=== PATIENT | male | born 1970 | race Two or more races ===

== ENCOUNTER 2025-02-11 08:12 | Emergency (ER) | payer OTHER, SELFPAY ==
[2025-02-11 08:12] VITALS: BMI 51.3
[2025-02-11 08:19] VITALS: BP 171/112; BP 196/128; PULSE 73; RESP 18; TEMP 36.5; O2SAT 96
--- NOTE | 2025-02-11 08:33 | XR_ITS ---
Examination: Knee bilateral, 6 views Technique: Knee AP, lateral, oblique each knee total 6 views Date and time of exam: February 11, 2025, 0924 hours INDICATIONS: Onset bilateral knee pain beginning 1 week ago. 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
--- NOTE | 2025-02-11 08:33 | XR_ITS ---
Examination: Venous duplex lower extremity sonogram, bilateral. Date and time of exam: February 11, 2025, 0849 hours INDICATIONS: Bilateral leg pain a few months Technique: Multiple sonographic images of the deep venous system have been obtained. B-mode/2-D grayscale imaging of vascular structures and Doppler spectral analysis (waveforms) and color performed Both legs are examined. Findings: Deep venous systems do not demonstrate abnormal echogenicity. All visualized deep veins exhibit compressibility. All visualized deep veins exhibit augmentation. Impression: Negative for deep vein thrombosis
--- NOTE | 2025-02-11 08:34 | EKG_ITS ---
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
--- NOTE | 2025-02-11 08:34 | XR_ITS ---
EXAMINATION: PA lateral chest 2 views TECHNIQUE: Upright PA lateral chest 2 views Date and time: February 11, 2025, 0925 hours INDICATIONS: Shortness of breath chest pain today. FINDINGS: Minimal prominence left ventricle No pneumonia or pulmonary edema Probably prominent left first costochondral junction but recommend lordotic chest follow-up to exclude nodule in the left upper lobe Mild thoracic spondylosis IMPRESSION: Recommend AP lordotic chest follow-up to exclude pulmonary nodule left apex
--- NOTE | 2025-02-11 08:41 | PD.EDADULT ---
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 Patient denies any recent trauma, fever, nausea, vomiting, diaphoresis, chest pain, recent travel, surgeries, immobilizations, hx of CA, smoking, drug use. Related Data Home Medications ?Medication ?Instructions ?Recorded ?Confirmed baclofen 20 mg tablet 20 mg PO BID PRN pain #0 tabs 03/25/17 09/24/20 gabapentin 100 mg capsule 100 mg PO TID #0 caps 03/25/17 09/24/20 Previous Rx's ?Medication ?Instructions ?Recorded Acetaminophen ER * (TYLENOL ER *) 650 mg PO Q8HR PRN PAIN OR FEVER > 03/25/17 101 ##30 diclofenac sodium 1 % topical gel 2 g topical QID #50 grams 02/11/25 (Voltaren Arthritis Pain) Allergies Allergy/AdvReac Type Severity Reaction Status Date / Time No Known Allergies Allergy Verified 02/11/25 08:15 ED Exam Narrative Physical exam: Constitutional: Patient alert and oriented. Well appearing. No acute distress. Not toxic appearing. Head: Normocephalic, atraumatic. Eyes: Periorbital regions bilaterally normal to inspection. Conjunctiva clear bilaterally. Sclera anicteric bilaterally. Pupils equal, round, reactive to light bilaterally. Extraocular movements intact bilaterally. Mouth/Throat: Mucous membranes moist. No stridor or muffled voice. No trismus. Handling secretions without difficulty. Airway widely patent. Neck: Supple. Trachea midline. No JVD. No nuchal rigidity. Normal range of motion. Respiratory: Normal effort. No accessory muscle use or respiratory distress. Lungs clear to auscultation bilaterally without rhonchi, wheezes, or crackles. Cardiovascular: RRR. Normal S1/S2. No murmurs or rubs. Radial pulses intact bilaterally. Abdomen: Soft. Non-distended. Non-tender throughout. No pulsatile mass. No guarding or rebound. Negative Hameed?s sign. Negative McBurney?s point tenderness. Negative Rovsing?s. Back: No midline tenderness or step-offs. No CVA tenderness to palpation bilaterally. Upper Extremities: No gross deformities. Lower Extremities: No gross deformities. No edema or calf tenderness. Positive tenderness to palpation to medial joint line with small effusion noted to knees bilaterally. No erythema, warmth, ecchymosis. Patient with painless mid range of motion from 10 to 90 degrees. Negative laxity upon anterior, posterior draw. Neuro: Speech normal. No gross motor or sensory deficits to upper or lower extremities bilaterally. GCS 15. CN II?XII grossly intact. Skin: Warm, dry, normal color. Psych: Normal affect. Cooperative. Normal insight. Course Course Course Narrative: MDM Concern for internal knee derangement B/L resulting in effusion from arthritis vs sprain versus strain versus occult fracture or dislocation No infectious etiology and low suspicion for septic arthritis given lack of circumferential erythema, heat, irritable joint as patient has a fairly good mid range motion but is painless Extremities B/L remains distally neurovascular intact with soft compartments X-ray without gross fracture or bony malalignment Pt also c/o of intermittent SOB pt O2 sat is 97 on RA and no sigsn of respiratory distress this is SOB of unclear e/o however pt does not have symptoms right now Other serious causes of shortness of breath were considered: ACS considered but unlikely given absence of chest pain and no concerning history or risk features at this time and trop x 2 negative CHF doubted given lack of edema, JVD, or signs of volume overload. and BNP negative PE considered but unlikely given low Wells score and absence of pleuritic chest pain. and d-dimer negative Pneumonia doubted given no focal findings on exam. Admission was considered, but based on history, exam, and clinical improvement after therapy, outpatient management is appropriate. The patient was counseled that if symptoms worsen?including increased shortness of breath, chest pain, or syncope?they should return immediately for reassessment. Close follow-up with PMD in 1-2 days is recommended. Quality Measures none Orders Category Date Time Status Continuous EKG monitoring NOW Care 02/11/25 08:34 Completed Continuous Pulse Oximetry NOW Care 02/11/25 08:34 Completed EKG (ED ONLY) *Do not use* NOW Care 02/11/25 08:34 Completed Insert IV NOW Care 02/11/25 09:16 Completed Miscellaneous Nursing Order NOW Care 02/11/25 14:09 Completed EKG (ED Only) Stat Exams 02/11/25 08:34 Draft US venous duplex LE BI Stat Exams 02/11/25 08:33 Completed XR chest 2V Stat Exams 02/11/25 08:34 Completed XR chest w apical lordotic Stat Exams 02/11/25 11:44 Completed XR knee BI 3V Stat Exams 02/11/25 08:33 Completed B-Type Natriuretic Peptide Stat Lab 02/11/25 09:17 Completed CBC Stat Lab 02/11/25 09:17 Completed CK [Creatine Kinase] Stat Lab 02/11/25 09:17 Completed Comprehensive Metabolic Panel Stat Lab 02/11/25 09:17 Completed D-Dimer Stat Lab 02/11/25 09:17 Completed INR [Prothrombin Time with INR] Stat Lab 02/11/25 09:17 Completed Lipase Stat Lab 02/11/25 09:17 Completed Partial Thromboplastin Time Stat Lab 02/11/25 09:17 Completed Troponin I Stat Lab 02/11/25 09:17 Completed Troponin I Stat Lab 02/11/25 12:25 Completed Urinalysis, C/S if Indicated Stat Lab 02/11/25 09:50 Completed Ketorolac Inj [Toradol Inj] Med 02/11/25 11:46 Discontinued 60 mg IM X1 ONE Morphine* Inj Med 02/11/25 09:16 Discontinued 4 mg IM X1 ONE Ondansetron Inj [Zofran Inj] Med 02/11/25 09:16 Discontinued 4 mg IVP X1 ONE Reevaluation(s) Reevaluation #1: At the time of reassessment, the patient remains alert and oriented ?3 with GCS 15. Vitals are normal, pain is controlled, and the patient is tolerating oral intake without nausea or vomiting. The patient is agreeable to discharge and verbalizes understanding of the diagnosis, studies, treatment plan, medications (including side effects/precautions), and strict ER return precautions as discussed in the ED. All concerns were addressed, and the patient is comfortable with the plan. Time: 14:01 Vital Signs Vital signs: Vital Signs Temperature 97.7 F 02/11/25 08:19 Pulse Rate 73 02/11/25 08:19 Respiratory Rate 18 02/11/25 08:19 Blood Pressure 196/128 H 02/11/25 08:19 Pulse Oximetry (%) 96 02/11/25 08:19 Oxygen Delivery Method Room Air 02/11/25 08:19 PROCEDURES: EKG Interpretation #1: Date of EK02/11/25 Time of EK:41 Rate: 79 Interpretation: Interpreted by me EKG Impression: Normal sinus rhythm Additional EKG comment: No ST elevation, there is nonspecific ST abnormalities noted in the inferior and anterior leads Discharge Plan Plan Patient Disposition: HOME (Self Care) Patient condition on transfer: Stable Prescriptions/Referrals Prescriptions/Med Rec: New diclofenac sodium [Voltaren Arthritis Pain] 1 % gel 2 g topical QID Qty: 50 0RF Rx Instructions: apply to both knees No Action Acetaminophen ER * (TYLENOL ER *) 650 MG TABLET.ER 650 mg PO Q8HR PRN (Reason: PAIN OR FEVER > 101) Qty: 30 0RF baclofen 20 MG tablet 20 mg PO BID PRN (Reason: pain) Qty: 0 gabapentin 100 MG capsule 100 mg PO TID Qty: 0 Referrals: [facility] [Provider Group] - In 1 week No Primary/Family,Physician [Primary Care Provider] - In 1 week Outpatient Orders: DME: Miguel Ángel (Routine) Location: None Selected Ordered By: Anton Harrell Problem List Clinical Impression: Effusion of both knee joints, Dyspnea Patient/Caregiver Discharge Instructions Education Materials: ED Shortness of Breath (Dyspnea), ED Knee Effusion Additional Instructions: Follow up with your primary medical doctor within 24 hours. Return to the Emergency Room immediately for any new, worsening, continuing symptoms or any concerns at all. Return to the Emergency Room within 24 hours if you are unable to follow up with your primary medical doctor within 24 hours. Follow up with a maritime pilot and an orthopedic doctor within 1 weeks as well. 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 Layla ZHOU Labs Lab(s) Interpretation(s): EKG without acute ischemia, high grade AV block, arrhythmia CBC without severe leukocytosis, anemia, or thrombocytopenia CMP without severe hyperbilirubinemia, transaminitis, acute renal failure or severe electrolyte derangement Lipase without severe elevation Chest x-ray without acute cardiopulmonary abnormality Medication Administration(s) Medication Administration History Discontinued Medications Ketorolac Tromethamine (Ketorolac Inj 60 Mg/2 Ml Vial) 60 mg IM X1 ONE Stop: 02/11/25 11:47 Last Admin: 02/11/25 12:25 Dose: 60 mg Documented By: Morphine Sulfate (Morphine Sulf Inj 4 Mg/Ml Vial) 4 mg IM X1 ONE Stop: 02/11/25 09:17 Last Admin: 02/11/25 11:34 Dose: Not Given Documented By: Non-Admin Reason: Patient Refused Ondansetron HCl (Ondansetron Inj 2 Mg/Ml Inj 2 Ml) 4 mg IVP X1 ONE; Protocol Stop: 02/11/25 09:17 Last Admin: 02/11/25 11:34 Dose: Not Given Documented By: Non-Admin Reason: Patient Refused
[2025-02-11 09:36] LABS: Basophils # (Auto) 0.1 Thou/mm3 (0.0-0.2); Basophils % (Auto) 1 % (0-2.5); Eosinophils # (Auto) 0.5 Thou/mm3 (0.0-0.5); Eosinophils % (Auto) 5 % (0-10); Hematocrit 52.7 % (41.0-53.0); Hemoglobin 17.4 g/dL (13.5-16.0); Immature Granulocytes Auto 0.07 Thou/mm3 (0.00-0.00); Lymphocytes # (Auto) 2.3 Thou/mm3 (1.0-4.8); Lymphocytes % (Auto) 24 % (10-50); Mean Corpuscular HGB Conc 33.0 g/dl (31.0-37.0); Mean Corpuscular Hemoglobin 29.5 pg (25.0-35.0); Mean Corpuscular Volume 89 fL (80-100); Monocytes # (Auto) 0.8 Thou/mm3 (0.0-0.8); Monocytes % (Auto) 8 % (0-12); Neutrophils # (Auto) 5.9 Thou/mm3 (1.8-7.7); Neutrophils % (Auto) 61 % (37-80); Nucleated Red Blood Cell # 0.00 Thou/mm3 (0.00-0.00); Nucleated Red Blood Cell % 0 /100 WBC (0); Platelet Count 293 Thou/mm3 (140-440); RDW Standard Deviation 45.0 fL (35.1-43.9); Red Blood Count 5.90 Miln/mm3 (4.50-5.90); White Blood Count 9.6 Thou/mm3 (3.8-10.6)
[2025-02-11 09:58] LABS: B-Type Natriuretic Peptide 30 pg/mL (0-100)
[2025-02-11 09:59] LABS: Alanine Aminotransferase 29 U/L (10-49); Albumin, Serum 4.7 gm/dL (3.5-5.0); Albumin/Globulin Ratio 1.7 (1.2-2.2); Alkaline Phosphatase 113 U/L (46-116); Anion Gap 9 (7-16); Aspartate Amino Transferase 37 U/L (0-34); BUN/Creatinine Ratio 12 Ratio (12-20); Bilirubin,Total 0.5 mg/dL (0.3-1.2); Blood Urea Nitrogen 12 mg/dL (9-23); Calcium 9.2 mg/dL (8.3-10.6); Calcium (Corrected) 9.2 mg/dL (8.5-10.1); Carbon Dioxide 25.8 mMol/L (20.0-31.0); Chloride 105 mMol/L (98-107); Creatine Kinase 76 U/L (34-171); Creatinine (Component) 1.0 mg/dL (0.6-1.3); Estimated Creatinine Clearance 149.0 mL/min (>60); Globulin 2.8 gm/dL (2.3-3.5); Glucose 93 mg/dL (74-106); Lipase 36 U/L (12-53); Osmolality,Calculated 279 (275-295); Potassium 4.8 mMol/L (3.4-5.1); Sodium 140 mMol/L (136-145); Total Protein 7.5 gm/dL (5.7-8.2); Troponin I < 0.020 ng/mL (0.0-0.045); eGFR > 60 See Note
[2025-02-11 10:00] LABS: INR 1.0 (0.9-1.3); Partial Thromboplastin Time 31.0 Seconds (22.0-36.0); Prothrombin Time 10.8 Seconds (9.0-12.2)
[2025-02-11 10:01] LABS: D-Dimer < 250 ng/mL (<600)
[2025-02-11 10:04] LABS: Collection Type, Urine Clean Catch
[2025-02-11 10:36] VITALS: BP 135/75; BP 145/65; PULSE 75; RESP 19; O2SAT 97
[2025-02-11 10:47] LABS: Bilirubin,Urine Negative (Negative); Blood,Urine Negative (Negative); Clarity,Urine Clear (Clear/Hazy); Color,Urine Yellow (Lt Yel-Yel); Culture Indicated,Urine Not Indicated; Glucose, Urine Negative (Negative); Ketones,Urine Negative (Negative); Leukocyte Esterase,Urine Negative (Negative); Nitrite,Urine Negative (Negative); PH,Urine 6.0 (5.0-7.0); Protein,Urine Trace (Neg - Trace); RBC,Urine 2 /hpf (0-3); Specific Gravity,Urine 1.022 (1.001-1.035); Squamous Epithelial Cell,Urine 1 /hpf (0-5); Urobilinogen,Urine Negative mg/dL (0.0-1.0); WBC,Urine 3 /hpf (0-5)
--- NOTE | 2025-02-11 11:44 | XR_ITS ---
EXAMINATION: AP lordotic chest single view TECHNIQUE: Lordotic AP portable chest single view Date and time: February 11, 2025, 11:54 a.m. INDICATIONS: Nodule versus calcification at the left first costochondral junction on chest film February 11, 2025 0925 hours. FINDINGS: No pulmonary mass confirmed at the left apex Mild prominence left ventricle No pneumonia IMPRESSION: No nodule confirmed at the left apex
[2025-02-11] MEDS: KETOROLAC INJ 60 MG/2 ML VIAL IM (12:25)
[2025-02-11 13:15] LABS: Troponin I < 0.020 ng/mL (0.0-0.045)
== END 2025-02-11 14:45 | disposition home or self-care (01) ==
PROVIDERS: Physician Assistant; Emergency Provider Emergency Medicine
DX: M25.462 Effusion, left knee (principal); M25.461 Effusion, right knee; R06.00 Dyspnea, unspecified; I10 Essential (primary) hypertension; M79.605 Pain in left leg; M79.604 Pain in right leg; R07.9 Chest pain, unspecified; R94.31 Abnormal electrocardiogram [ECG] [EKG]
CPT/HCPCS: 36415; 71046; 71047; 73562; 80053; 81001; 82550; 83690; 83880; 84484; 85025; 85379; 85610; 85730; 93005; 93970; 96372; 99283; J1885